=== PATIENT | male | born 1945 | race Caucasian/White ===

== ENCOUNTER 2019-09-26 10:29 | Observation (INO) | payer MEDICARE ==
--- NOTE | 2019-09-26 10:42 | CT ---
CT BRAIN NONCONTRAST: DATE: 09/26/2019 HISTORY: 74-year-old male with acute stroke symptoms: Altered mental status. This acute stroke alert protocol report was called to Dr. Garces of the emergency Department at 10:38 AM on 09/26/2019 FINDINGS: There is no evidence of acute intra-axial or extra-axial hemorrhage. There is no midline shift or any other mass effect. There is no extra-axial fluid collection. There is no evidence of obstructive hydrocephalus. Calvarium is intact. There is diffuse brain parenchymal volume loss. There are low att enuation areas in the white matter. These are nonspecific, but in a patient of this age, they are probably chronic ischemic white matter changes due to microvascular atherosclerosis. IMPRESSION: 1) No acute intracranial findings. 2) involutional changes and chronic ischemic white matter changes.
[2019-09-26 10:45] LABS: #Eosinphils 0.4 thou/uL (0.0-0.7); #Lymphocytes 1.7 thou/uL (1.20-3.40); #Monocytes 0.6 thou/uL (0.11-0.59); #Neutrophils 3.3 thou/uL (1.40-6.50); %Basophils 0.2 % (0.0-1.0); %Eosinophils 6.2 % (0.0-10.0); %Lymphocytes 28.2 % (21.0-51.0); %Monocytes 10.4 % (0.0-10.0); %Neutrophils 55.1 % (42.0-75.0); Hemoglobin 14.9 g/dL (14.0-18.0); Mean Corpuscular HGB CONC 35.2 g/dL (32.0-36.0); Mean Corpuscular Hemoglobin 32.5 pg (27.0-31.0); Mean Corpuscular Volume 92.2 fL (78.0-98.0); Mean Platelet Volume 6.1 fL (7.4-10.4); Platelet Count 192 thou/uL (130-400); RBC Distribution Width 12.4 % (11.5-14.5); Red Blood Cell (RBC) Count 4.58 mill/uL (4.70-6.10); White Blood Cell (WBC) Count 5.9 thou/uL (4.8-10.8)
[2019-09-26 10:50] LABS: INR-International Normal Ratio 0.9; PTT 24.8 SEC (22.9-36.1); Prothrombin Time 12.6 SEC (12.0-14.7)
[2019-09-26 10:57] LABS: ALT (SGPT) 40 U/L (8-55); AST (SGOT) 23 U/L (5-34); Albumin 4.9 g/dL (3.4-4.8); Alkaline Phosphatase 70 U/L (40-110); Anion Gap 14 mmol/L (10-20); BUN (Urea Nitrogen) 11 mg/dL (8.4-25.7); Bilirubin, Total 0.6 mg/dL (0.2-1.2); CK (CPK) 89 U/L (30-200); Calc. Creatinine Clearance 0 mL/min (70-130); Calcium 9.7 mg/dL (7.8-10.44); Carbon Dioxide 28 mmol/L (23-31); Chloride 96 mmol/L (98-107); Estimated GFR-MDRD 76; Glucose 119 mg/dL (83-110); Protein, Total 7.9 g/dL (5.8-8.1); Sodium 134 mmol/L (136-145)
--- NOTE | 2019-09-26 11:17 | RAD ---
Exam: Chest one view HISTORY:Altered mental status. Comparison: None FINDINGS: Cardiac silhouette: Normal Aorta: Unremarkable Pulmonary vessels: Normal Costophrenic angles: Clear LUNGS: No masses or consolidation. Pneumothorax: None Osseous abnormalities: None IMPRESSION: No acute cardiopulmonary process.
[2019-09-26] MEDS ORDERED: Aspirin 325 MG TAB ONE (12:30)
[2019-09-26] MEDS ORDERED: Aspirin Chewable 81 MG TAB ONE (12:31)
[2019-09-26] MEDS ORDERED: Bisacodyl 5 MG TAB PO PRN (13:42)
[2019-09-26] MEDS ORDERED: Acetaminophen 650 MG Suppository PR PRN (13:42)
[2019-09-26] MEDS ORDERED: Acetaminophen 325 MG TAB PO PRN (13:42)
[2019-09-26] MEDS ORDERED: Dextrose 50% Abboject 50 ML SYRINGE SLOW IVP PRN (13:45)
[2019-09-26] MEDS ORDERED: Dextrose 5% in Water 1,000 ML IV PRN (13:45)
[2019-09-26] MEDS ORDERED: Insulin Regular 300 UNITS/3 ML VIAL SC PRN (13:45)
--- NOTE | 2019-09-26 15:04 | HP ---
PRIMARY CARE PROVIDER: Kirby Hamilton MD CHIEF COMPLAINT: Difficulty reading. HISTORY OF PRESENT ILLNESS: Mr. Chavez is a pleasant 74-year-old gentleman who was seen at [facility] on September 26, 2019. He reports that he was reading his newspaper earlier today. He reports that he was reading well and suddenly, he started having difficulty reading. He reports that the words did not make sense to him. He informed his . On the way to the emergency room, he reportedly had difficulty finding the word gum. His symptoms resolved by the time he came to the emergency room. However, while in the emergency room, he had an approximately 5-minute episode of right-sided tongue numbness. He denies any chest pain or shortness of breath. He denies any nausea or vomiting. REVIEW OF SYSTEMS: All systems were reviewed and found to be negative except for the pertinent positives mentioned above. PAST MEDICAL HISTORY: Diabetes mellitus, type 2; dyslipidemia; and hypertension. PAST SURGICAL HISTORY: Cholecystectomy and cataract surgery. SOCIAL HISTORY: The patient drinks 4 to 6 beers a day. He denies any recreational drug use or tobacco use. FAMILY HISTORY: Significant for stroke in his brother. ALLERGIES: LISINOPRIL. CURRENT MEDICATIONS: 1. Aspirin 81 mg daily. 2. Atorvastatin 80 mg at bedtime. 3. Coreg 12.5 mg 3 times a day. 4. Hydrochlorothiazide 12.5 mg daily. 5. Janumet XR mg 2 times a day. PHYSICAL EXAMINATION: GENERAL: On examination, Mr. Chavez is awake and alert, not in acute distress. VITAL SIGNS: Blood pressure is 161/86, pulse 63, respiratory rate 18, and oxygen saturation 97% on room air. He is afebrile. EYES: No scleral icterus, no conjunctival pallor. ENT: Moist mucosal membranes. No oropharyngeal erythema or exudates. NECK: Supple, nontender, trachea is midline. RESPIRATORY: Accessory muscles of breathing are not active. Chest wall movements are symmetric bilaterally. Lungs are clear to auscultation without wheeze, rhonchi, or crepitations. CARDIOVASCULAR: S1 and S2 are heard, regular. Peripheral pulses palpable. NEUROLOGIC: Cranial nerves 2 through 12 are intact. Power is 5/5 in all 4 extremities. No focal motor or sensory deficits. Deep tendon reflexes 2+, plantars downgoing bilaterally. ABDOMEN: Soft, nontender, bowel sounds are heard. MUSCULOSKELETAL: Power is 5/5 in all 4 extremities. SKIN: No rashes or subcutaneous nodules. LYMPHATIC: No cervical lymphadenopathy. PSYCHIATRIC: Normal mood, normal affect. The patient is oriented to person, place, and time. LABORATORY DATA: Mr. Chavez' labs and investigations were reviewed. I reviewed his electrocardiogram which shows normal sinus rhythm with left bundle-branch block. I also reviewed his chest x-ray which did not show any pulmonary infiltrates. Noncontrast CT scan of the brain did not show any acute intracranial abnormality. He has an unremarkable CBC, INR 0.9, mildly decreased sodium of 134, elevated albumin of 4.9, otherwise unremarkable LFTs, normal creatinine and normal troponin-I of less than 0.010. ASSESSMENT AND PLAN: Mr. Chavez is a pleasant 74-year-old gentleman who was seen at [facility] on September 26, 2019. His problem list includes: 1. Transient ischemic attack: Mr. Chavez appears to have had an episode of transient ischemic attack. We will admit him to the hospital on observation status. We will check 2D echocardiogram, MRI of the brain and carotid Dopplers. We will increase aspirin to 325 mg. We will consult Neurology Service. 2. Diabetes mellitus, type 2: Start Accu-Cheks and insulin sliding scale. 3. Hypertension: Resume home medications, monitor vital signs, and titrate antihypertensives as needed. 4. Dyslipidemia: Continue atorvastatin. 5. Left bundle-branch block: Chronicity unclear. The patient denies any chest pain. Trend troponins. Obtain old electrocardiograms if available from primary care provider's office for comparison. Many thanks for allowing me to participate in your patient's care. Please feel free to contact me with any questions or concerns. LEVEL OF RISK: High. LEVEL OF COMPLEXITY: High. Job ID: [id number]
--- NOTE | 2019-09-26 15:07 | ULT ---
CAROTID ULTRASOUND: HISTORY: Transient ischemic attack. COMPARISON: None. TECHNIQUE: Lake scale, color flow, Doppler imaging, and spectral waveform analysis was performed of the carotid and vertebral arteries. FINDINGS: RIGHT CAROTID: There is calcified and noncalcified plaque in the carotid bifurcation. Peak systolic velocity of the common carotid artery is 93.8 cm/s. Peak systolic velocity of the inte rnal carotid artery is 109.4 cm/s. Systolic ICA to CCA ratio is 1.17. LEFT CAROTID: Calcified plaque in the carotid bifurcation. Peak systolic velocity of the common carotid artery is 124.3 cm/s. Peak systolic velocity of the internal carotid artery is 188.8 cm/s. Systolic ICA to CC A ratio is 1.52. Antegrade flow in bilateral vertebral arteries. IMPRESSION: Moderate (50-69%) stenosis involving the internal carotid artery. Better interrogation with CT angio gram of the neck is recommended. POS: MOHIT
[2019-09-26 16:39] VITALS: BMI 26.6
[2019-09-26] MEDS ORDERED: Iopamidol-370 76% 500 ML 1 ML ONE (16:53)
[2019-09-26 17:27] LABS: Troponin I Less than 0.010 ng/mL (< 0.028)
[2019-09-26] MEDS ORDERED: Atorvastatin Calcium 40 MG TAB PO SCH (21:00)
--- NOTE | 2019-09-26 21:55 | CT ---
CT ANGIO NECK WITH IV CONTRAST AND 3D POSTPROCESSING: Date: 09/26/19 HISTORY: TIA, moderate stenosis involving the left internal carotid artery on carotid Doppler ultrasound from earlier today. FINDINGS: There are calcified plaques in the carotid bulbs bilaterally and the left proximal ICA. These result in mild stenosis. No high grade stenosis or major branch occlusion is seen. There is good flow in the vertebral arteries bilaterally. IMPRESSION: No evidence of significant stenosis in either ICA. POS: MOHIT
[2019-09-27 05:59] LABS: #Eosinphils 0.4 thou/uL (0.0-0.7); #Lymphocytes 1.8 thou/uL (1.20-3.40); #Monocytes 0.8 thou/uL (0.11-0.59); #Neutrophils 3.5 thou/uL (1.40-6.50); %Basophils 0.2 % (0.0-1.0); %Eosinophils 5.7 % (0.0-10.0); %Lymphocytes 27.4 % (21.0-51.0); %Monocytes 12.4 % (0.0-10.0); %Neutrophils 54.3 % (42.0-75.0); Hemoglobin 14.5 g/dL (14.0-18.0); Mean Corpuscular HGB CONC 35.4 g/dL (32.0-36.0); Mean Corpuscular Hemoglobin 32.8 pg (27.0-31.0); Mean Corpuscular Volume 92.8 fL (78.0-98.0); Mean Platelet Volume 6.3 fL (7.4-10.4); Platelet Count 188 thou/uL (130-400); RBC Distribution Width 12.5 % (11.5-14.5); Red Blood Cell (RBC) Count 4.43 mill/uL (4.70-6.10); White Blood Cell (WBC) Count 6.4 thou/uL (4.8-10.8)
[2019-09-27 06:23] LABS: Anion Gap 13 mmol/L (10-20); BUN (Urea Nitrogen) 10 mg/dL (8.4-25.7); Calc. Creatinine Clearance 87 mL/min (70-130); Calcium 9.7 mg/dL (7.8-10.44); Carbon Dioxide 30 mmol/L (23-31); Cardiac Risk 2.7 (Less than 4.5); Chloride 96 mmol/L (98-107); Cholesterol 115 mg/dl (< 200 Desired); Estimated GFR-MDRD 87; Glucose 91 mg/dL (83-110); HDL Cholesterol 43 mg/dL (>60 Neg Risk); LDL Cholesterol, Calculated 60 mg/dL; Potassium 4.1 mmol/L (3.5-5.1); Sodium 135 mmol/L (136-145); Triglycerides 58 mg/dL (Less than 150)
[2019-09-27] MEDS ORDERED: Aspirin 325 mg Enteric Coated Tablet PO SCH (09:00)
--- NOTE | 2019-09-27 09:11 | MRI ---
MRI BRAIN WITHOUT CONTRAST: HISTORY: TIA CORRELATION: CT scan from 09/26/2019. FINDINGS: No restricted diffusion is seen. There are multiple foci of T2 prolongation in the periventricular wh ite matter, consistent with chronic small vessel ischemic disease. The ventricular size is appropriate and the basilar cisterns are patent. No evidence of acute infarct, hemorrhage, midline shift or abnormal extra-axial fluid collections is seen. There is mucosal disease in the paranasal sinuses. There is fluid in the left mastoid air cells. IMPRESSION: No evidence of acute intracranial process.
--- NOTE | 2019-09-27 14:28 | PDOC.HOSPP ---
- Subjective Encounter Date: 09/27/19 Encounter Time: 09:00 Subjective: Pt seen for followup re; TIA. Feels well, no complaints. - Objective Vital Signs & Weight: Vital Signs (12 hours) Temp Pulse Resp BP BP Pulse Ox 09/27/19 11:59 97.7 F 66 23 H 172/79 H 97 09/27/19 09:00 164/77 H 09/27/19 07:41 97 09/27/19 07:36 97.6 F 73 16 164/77 H 97 09/27/19 04:00 97.9 F 65 16 141/65 H 95 Weight Weight 180 lb 11.2 oz I&O: 09/26/19 09/27/19 09/28/19 06:59 06:59 06:59 Intake Total 180 Balance 180 Result Diagrams: 09/27/19 04:31 09/27/19 04:31 Additional Labs: Accuchecks 09/27/19 09/27/19 09/26/19 10:57 06:02 20:12 POC Glucose 135 H 201 H 139 H 09/26/19 16:54 POC Glucose 114 H Labs and MARs reviewed by me EKG Reviewed by me: Yes (Tele; NSR) Hospitalist ROS - Review of Systems Cardiovascular: denies: chest pain, palpitations, orthopnea, paroxysmal noc. dyspnea, edema, light headedness Gastrointestinal: denies: nausea, vomiting, abdominal pain, diarrhea, constipation, melena, hematochezia Neurological: denies: weakness, numbness, incoordination, change in speech, confusion, seizures - Medication Medications: Active Medications Generic Name Dose Route Start Last Admin Trade Name Ellen PRN Reason Stop Dose Admin Aspirin 325 mg 09/27/19 09:00 09/27/19 09:19 Ecotrin PO 325 mg DAILY VICTORINA Administration Atorvastatin Calcium 80 mg 09/26/19 21:00 09/26/19 21:09 Lipitor PO 80 mg HS VICTORINA Administration - Exam General Appearance: NAD Eye: anicteric sclera ENT: moist mucosa Neck: supple Heart: RRR, no rubs Respiratory: CTAB Gastrointestinal: soft, non-tender Extremities: no edema Neurological: cranial nerve grossly intact, normal sensation to touch, no weakness, no focal deficits Psychiatric: normal affect, normal behavior Hosp A/P (1) TIA (transient ischemic attack) Code(s): G45.9 - TRANSIENT CEREBRAL ISCHEMIC ATTACK, UNSPECIFIED Status: Acute (2) DM2 (diabetes mellitus, type 2) Status: Chronic (3) HTN (hypertension) Code(s): I10 - ESSENTIAL (PRIMARY) HYPERTENSION Status: Chronic (4) Dyslipidemia Code(s): E78.5 - HYPERLIPIDEMIA, UNSPECIFIED Status: Chronic - Plan Start PRN IV hydralazine. Continue aspirin and statin. MRI brain nil acute. Await echo, neurology input.
[2019-09-27] MEDS ORDERED: hydrALAZINE 20 MG/ML VIAL SLOW IVP PRN (14:29)
[2019-09-27] MEDS ORDERED: Carvedilol 25 MG TAB PO SCH (15:00)
[2019-09-27] MEDS ORDERED: Carvedilol 6.25 MG TAB PO SCH ×2 (15:45→21:00)
[2019-09-27 15:58] VITALS: BP 183/87; TEMP 97.9
--- NOTE | 2019-09-27 19:41 | DIS ---
DATE OF ADMISSION: 09/26/2019 DATE OF DISCHARGE: 09/27/2019 PRIMARY CARE PROVIDER: Dr. Sheldon Perez. DISCHARGE DIAGNOSES: 1. Transient ischemic attack. 2. Hyponatremia. CONDITION OF PATIENT ON THE DAY OF DISCHARGE: Stable. I assessed Mr. Chavez on the day of discharge. Please refer to my daily progress note dated 09/27/2019, for further details. DISCHARGE MEDICATIONS: Aspirin dose has been increased to 325 mg daily. He has been advised to resume Janumet with evening dose on 09/28/2019. Otherwise, no change was made to his pre-admission home medications, which include: 1. Atorvastatin 80 mg at bedtime. 2. Coreg 12.5 mg 3 times a day. 3. Hydrochlorothiazide 12.5 mg daily. CONSULTATIONS DURING THIS HOSPITALIZATION: Neurology, Dr. Holt. POST-DISCHARGE FOLLOWUP: With primary care provider in 3 days' time and with Neurology in 2 to 3 weeks' time. HOSPITAL COURSE: Mr. Chavez is a pleasant 74-year-old gentleman, who was admitted to [facility] for transient ischemic attack on 2018. Carotid Dopplers showed moderate stenosis involving the left internal carotid artery. Radiologist recommended better interrogation with CT angiogram of the neck. He went on to have CT angiogram of the neck, which did not show any significant stenosis in either ICA. MRI of the brain did not show any evidence of acute intracranial process. At the time of this dictation, 2D echocardiogram result is pending. He has been advised to follow up with primary care provider for the same. He was seen by Neurology Service and has been cleared for discharge. Many thanks for allowing me to participate in your patient's care. Please feel free to contact me with any questions or concerns. LABORATORY DATA: On the day of discharge, he has sodium 135, potassium 4.1, creatinine 0.86. White count 6400, hemoglobin 14.5, and platelet count 188,000. Fasting lipid profile during this hospitalization showed triglycerides 58, cholesterol 115, LDL cholesterol 60, and HDL cholesterol 43. ACTIVITY: As tolerated. DIET: Heart healthy. DISCHARGE DESTINATION: Home. Job ID: [id number] [facility]
[2019-09-27] MEDS ORDERED: Aspirin 81 mg Enteric Coated Tablet PO SCH (21:00)
[2019-09-28] MEDS ORDERED: Aspirin 325 mg Enteric Coated Tablet PO SCH (09:00)
[2019-09-28] MEDS ORDERED: Hydrochlorothiazide 25 MG TAB PO SCH (09:00)
== END 2019-09-27 16:13 | disposition home or self-care (01) ==
LOC: ERS 10:29 → 2SE 12:33
PROVIDERS: ADMIT Psychiatry & Neurology Neurology; ATTEND Psychiatry & Neurology Neurology
DX: I65.22 Occlusion and stenosis of left carotid artery (principal); E87.1 Hypo-osmolality and hyponatremia; I10 Essential (primary) hypertension; E78.5 Hyperlipidemia, unspecified; E11.9 Type 2 diabetes mellitus without complications; I44.7 Left bundle-branch block, unspecified; Z79.82 Long term (current) use of aspirin; Z79.84 Long term (current) use of oral hypoglycemic drugs; Z79.899 Other long term (current) drug therapy; Z88.8 Allergy status to other drugs, medicaments and biological substances
CPT/HCPCS: 70450; 70498; 70551; 71045; 80048; 80053; 80061; 82550; 82962 ×2; 84484 ×2; 85025 ×2; 85610; 85730; 93005; 93306; 93880; 99285; G0378 ×3; 36415; 36416; Q9967

== ENCOUNTER 2022-01-07 11:38 | Outpatient (CLI) | payer MEDICARE | END 2022-01-07 11:39 | disposition home or self-care (01) | LOC: BICRAD 11:38 | PROVIDERS: ATTEND Internal Medicine Gastroenterology | DX: T81.89XA Other complications of procedures, not elsewhere classified, initial encounter (principal) | CPT/HCPCS: 71046 ==

== ENCOUNTER 2022-07-02 09:16 | Outpatient (CLI) | payer MEDICARE ==
[2022-07-02 11:24] LABS: Bilirubin Neg (Negative); Blood, Urine Negative (Negative); Clarity Clear (Clear); Glucose, Urine (Dipstick) Normal (Negative); Ketone, Urine Negative (Negative); Leukocyte Negative (Negative); Nitrite Negative (Negative); Protein, Urine (Dipstick) Negative (Neg-Trace); Specific Gravity, Urine 1.005 (1.002-1.036); Urobilinogen Normal mg/dL (Less than 2)
[2022-07-02 11:27] LABS: #Eosinphils 0.2 10x3/uL (0.0-0.5); #Monocytes 0.6 10x3/uL (0.0-1.1); #Neutrophils 2.3 10x3/uL (1.5-8.4); %Basophils 0.7 % (0.0-2.0); %Eosinophils 4.3 % (0.0-6.0); %Monocytes 14.3 % (0.0-10.0); %Neutrophils 51.2 % (40.0-75.0); Hemoglobin 14.4 g/dL (13.5-17.5); Mean Corpuscular HGB CONC 36.5 g/dL (32.0-36.0); Mean Corpuscular Hemoglobin 32.4 pg (27.0-33.0); Mean Corpuscular Volume 88.5 fl (81.2-95.1); Mean Platelet Volume 9.2 fl (7.4-10.4); Platelet Count 168 10x3/uL (150-450); RBC Distribution Width 13.5 % (11.5-14.5); Red Blood Cell (RBC) Count 4.45 10x6/uL (4.32-5.72); White Blood Cell (WBC) Count 4.4 10x3/uL (3.5-10.5)
[2022-07-02 11:50] LABS: Anion Gap 13 mmol/L (10-20); BUN (Urea Nitrogen) 11 mg/dL (8.4-25.7); Calc. Creatinine Clearance 0 mL/min (70-130); Calcium 9.2 mg/dL (7.8-10.44); Carbon Dioxide 26 mmol/L (23-31); Chloride 96 mmol/L (98-107); Estimated GFR 89; Glucose 142 mg/dL (83-110); Potassium 3.9 mmol/L (3.5-5.1); Sodium 131 mmol/L (136-145)
== END 2022-07-02 09:17 | disposition home or self-care (01) ==
LOC: LABBT 09:16
PROVIDERS: ATTEND Orthopaedic Surgery Hand Surgery
DX: Z01.818 Encounter for other preprocedural examination (principal); S61.309A Unspecified open wound of unspecified finger with damage to nail, initial encounter; M86.9 Osteomyelitis, unspecified; I77.6 Arteritis, unspecified; Z20.822 Contact with and (suspected) exposure to COVID-19
CPT/HCPCS: 80048; 81003; 85025; 87811; 93005; 93010

== ENCOUNTER 2023-01-31 06:36 | Day surgery (SDC) | payer MEDICARE ==
[2023-01-29 13:28] VITALS: BMI 26.2
[2023-01-31] MEDS ORDERED: CEFAZOLIN 2 GM VIAL ONE (07:41)
[2023-01-31] MEDS ORDERED: Sodium Chloride 0.9% 100 ML ONE (07:41)
[2023-01-31] MEDS ORDERED: Neomycin-Polymyxin 1 ML AMP ONE (07:45)
[2023-01-31] MEDS ORDERED: Bupivacaine PF 0.5% 30 ML VIAL ONE (07:45)
[2023-01-31] MEDS ORDERED: Bacitracin Zinc Ointment 30 gm TUBE ONE (07:45)
[2023-01-31] MEDS ORDERED: FENTANYL 50 MCG/ML 1 ML VIAL ONE (08:26)
[2023-01-31] MEDS ORDERED: Ondansetron PF 4 MG/2 ML Vial ONE (08:49)
[2023-01-31] MEDS ORDERED: Lidocaine 1% PF 5 ML VIAL ONE (08:49)
[2023-01-31] MEDS ORDERED: PROPOFOL 200 MG/20 ML VIAL ONE (08:49)
[2023-01-31] MEDS ORDERED: Dexamethasone 20 MG/5 ML VIAL ONE (08:49)
[2023-01-31] MEDS ORDERED: Ketorolac Tromethamine 30 MG/ML VIAL ONE (10:06)
== END 2023-01-31 11:10 | disposition home or self-care (01) ==
LOC: SDC 06:36
PROVIDERS: ATTEND Orthopaedic Surgery Hand Surgery
PROC: 0HBQXZZ Excision of Finger Nail, External Approach (ICD-10-PCS; principal; 2023-01-31)
PROC: 01B60ZZ Excision of Radial Nerve, Open Approach (ICD-10-PCS; 2023-01-31)
DX: D36.12 Benign neoplasm of peripheral nerves and autonomic nervous system, upper limb, including shoulder (principal); L60.2 Onychogryphosis; I10 Essential (primary) hypertension; Z88.8 Allergy status to other drugs, medicaments and biological substances; Z79.84 Long term (current) use of oral hypoglycemic drugs; Z79.82 Long term (current) use of aspirin; Z79.899 Other long term (current) drug therapy
CPT/HCPCS: 11730; 64776; 87102; 87206; J3010; 88305; J1100; J1885; J2405; J2704; J3490; S0020